=== PATIENT | female | born 1995 | race Caucasian/White ===

== ENCOUNTER 2020-07-31 22:22 | Outpatient (CLI) | payer OTHER ==
[2020-08-01] MEDS ORDERED: CEFADROXIL500 MG PO (13:27)
== END 2020-08-01 16:51 ==
LOC: OBS/DEL 22:22
PROVIDERS: ATTEND Specialist
DX: O60.03 Preterm labor without delivery, third trimester (principal); O23.43 Unspecified infection of urinary tract in pregnancy, third trimester

== ENCOUNTER 2020-08-04 00:33 | Inpatient (IN) | payer OTHER ==
[~2020-08-04] VITALS: Ht 157.5 cm; Wt 76.7 kg
[~2020-08-04 00:33] MED LIST: CEFADROXIL500 MG PO
[2020-08-04] MEDS ORDERED: PRENATAL TABLE1 EAC1 PO (01:14)
== END 2020-08-06 12:14 | disposition home or self-care (01) | DRG 807 ==
LOC: LDR 00:33 → OB/GYN 00:33
PROVIDERS: ADMIT Specialist; ATTEND Specialist
PROC: 10E0XZZ Delivery of Products of Conception, External Approach (ICD-10-PCS; principal; 2020-08-04)
PROC: 10907ZC Drainage of Amniotic Fluid, Therapeutic from Products of Conception, Via Natural or Artificial Opening (ICD-10-PCS; 2020-08-04)
PROC: 0W8NXZZ Division of Female Perineum, External Approach (ICD-10-PCS; 2020-08-04)
PROC: 4A1HXFZ Monitoring of Products of Conception, Cardiac Rhythm, External Approach (ICD-10-PCS; 2020-08-04)
PROC: 3E033VJ Introduction of Other Hormone into Peripheral Vein, Percutaneous Approach (ICD-10-PCS; 2020-08-04)
DX: O80 Encounter for full-term uncomplicated delivery (principal); Z37.0 Single live birth; Z3A.36 36 weeks gestation of pregnancy; Z20.828 Contact with and (suspected) exposure to other viral communicable diseases